=== PATIENT | female | born 1925 | race Caucasian/White ===

== ENCOUNTER 2016-08-14 23:17 | Inpatient (IN) ==
--- NOTE | 2016-08-15 00:18 | Emergency Department Note ---
Zafar Roberts Manpreet, am scribing for, and in the presence of, Alex Robert MD 00:03. Jakob Roberts Charles R, MD, personally performed the services described in this documentation, ascribed by Naseem Stephen in my presence, and it is both accurate and complete . Arrival - Arrival Chief Complaint: Syncope Stated Complaint: trying to pass out flushing feeling ED Nursing Triage Note: C/O Near syncopal episodes and flushing. Onset on and off since lastnight. Pt reports that she has a warm feeling that starts in her abd and goes all the way up to her head- then she feels like she is going to pass out. Pt reports that the feeling passes then she has another episode. EKG obtained in triage. Mode of Arrival: Wheelchair Limitations: No Limitations Source: Patient, Family - History of Present Illness HPI Narrative: Pt is a 89 y/o female with PMHx of HTN, who presents to the ED with a CC of syncope episodes earlier tonight and that have been reoccurring since July. Pt states the episodes begin with a sensation starting from her Abd and radiate up to her head and feels like she is going to . Pt denies CP, dysuria , ALVAREZ, and fever. Pt is accompanied by her family member who states the Pt had a GI bleed November 26, 2015. No other pains/complaints reported to ED. Onset (ago): week(s) Consistency: intermittent Severity: moderate Severity scale (1-10): 4 Allergies/Adverse Reactions: Allergies Allergy/AdvReac Type Severity Reaction Status Date / Time ciprofloxacin AdvReac Intermediate Diarrhea Verified 08/14/16 23:21 Home Medications: Home Medications Medication Instructions Recorded Confirmed Type Atenolol 12.5 mg PO DAILY 08/14/16 08/14/16 History Calcium Carbonate/Vitamin D3 1 each PO DAILY 08/14/16 08/14/16 History [Calcium 600 + Vit D Tablet] Cyanocobalamin Inj [Vitamin B12 1,000 mcg IM Q30D 08/14/16 08/14/16 History Inj] Ferrous Sulfate 325 mg PO BID 08/14/16 08/14/16 History Folic Acid Tab 4 mg PO DAILY 08/14/16 08/14/16 History Levothyroxine Tab [Synthroid Tab] 75 mcg PO DAILY@0700 08/14/16 08/14/16 History Losartan [Cozaar] 50 mg PO DAILY 08/14/16 08/14/16 History Mirtazapine [Remeron] 15 mg PO BEDTIME 08/14/16 08/14/16 History Vitamin B Complex 1 each PO DAILY 08/14/16 08/14/16 History Warfarin [Coumadin] 2 mg PO DIRECTED 08/14/16 08/14/16 History Warfarin [Coumadin] 4 mg PO DIRECTED 08/14/16 08/14/16 History Review of System - Review of System 12 point system: reviewed and no additional remarkable complaints except as stated - Review of System Constitutional: Absent: chills, diaphoresis, fever Respiratory: Absent: cough, respiratory distress Cardiovascular: Present: syncope. Absent: chest pain Gastrointestinal: Present: abdominal pain. Absent: nausea Musculoskeletal: Absent: arm pain, back pain, lower back pain, neck pain Neurological: Present: other (Synope episodes). Absent: headache, weakness Medical,Surgical,& Family Hx - Medical History Cardio: History of: Hypertension - Social History Smoking Status: Never smoker Frequency of Alcohol Use: None Type of Drug Use: None Exam Vital Signs: Vital Signs Temperature 98.3 F 08/14/16 23:20 Pulse Rate 71 08/15/16 02:15 Respiratory Rate 24 08/15/16 02:15 Blood Pressure 150/61 08/15/16 02:15 O2 Sat by Pulse Oximetry 93 L 08/15/16 02:15 - General General appearance: alert, in no apparent distress - Head Head exam: Present: atraumatic, normocephalic, normal inspection - Eye Eye exam: Present: normal appearance, PERRL, EOMI - ENT ENT exam: Present: normal exam, normal oropharynx, mucous membranes moist, TM's normal bilaterally - Neck Neck exam: Present: normal inspection, full ROM, trachea midline. Absent: tenderness - Chest Chest inspection: Present: normal inspection, symmetric chest wall rise. Absent : tenderness - Respiratory Respiratory exam: Present: normal lung sounds bilaterally. Absent: respiratory distress - Cardiovascular Cardiovascular exam: Present: normal rhythm, bradycardia, murmur (2/6 Murmur). Absent: normal heart sounds - Abdominal Exam Abdominal exam: Present: soft - Extremities Exam Extremities exam: Present: other (+1 Bilateral LE Edema). Absent: normal inspection, full ROM - Neurological Exam Neurological exam: Present: alert, oriented X3, CN II-XII intact - Psychiatric Psychiatric exam: Present: normal affect, normal mood - Skin Skin exam: Present: warm, dry, intact, normal color. Absent: pallor Course - Consultations Consultation #1: Dr. Ren will admit patient for Dr. Dr. Marcano Time: 02:03 Results - Labs CBC & BMP: 08/15/16 00:25 08/15/16 00:25 Lab Results: I have reviewed the patients labs Labs: Laboratory Tests 08/15/16 08/15/16 08/15/16 00:25 00:25 00:25 WBC 7.4 RBC 4.26 Hgb 13.2 Hct 39.9 MCV 93.7 Plt Count 224 Neut % (Auto) 49.7 Lymph % (Auto) 35.5 [place] % (Auto) 10.1 INR 1.8 PT Patient/Control Mix 19.4 Sodium 142 Potassium 4.1 Chloride 107 Carbon Dioxide 28 BUN 21 H BUN/Creatinine Ratio 21.00 H Albumin/Globulin Ratio 1.0 L Disposition Clinical Impression: Vasovagal syncope, History of pulmonary embolus (PE), History of dermatomyositis Case discussed with: patient, patient's family Disposition: Still a Patient Condition: Stable Time of Disposition: 02:18
[2016-08-15 01:03] LABS: INR 1.8; PT Patient Result 19.4 SECS
[2016-08-15 01:13] LABS: Alanine Aminotransferase 30 U/L (13-56); Albumin 3.4 G/DL (3.4-5.0); Alkaline Phosphatase 101 U/L (45-117); Aspartate Amino Transferase 21 U/L (0-37); Bilirubin,Total < 0.39 MG/DL (0.2-1.0); Blood Urea Nitrogen 21 MG/DL (7-18); Calcium 9.2 MG/DL (8.5-10.1); Glucose 97 MG/DL (74-106); Magnesium 2.1 MG/DL (1.8-2.4); Osmolality,Calculated 285.1 MOS/KG (273-304); Potassium 4.1 MMOL/L (3.5-5.1); Sodium 142 MMOL/L (136-145); Total Protein 6.8 G/DL (6.4-8.3); Troponin I Only < 0.015 NG/ML (0.00-0.045)
[2016-08-15] MEDS ORDERED: ENOXAPARIN 80 MG/0.8 ML SYRINGE SUBCUT STA (01:19)
[2016-08-15] MEDS ORDERED: ENOXAPARIN 80 MG/0.8 ML SYRINGE SUBCUT ONE (01:20)
[2016-08-15 01:23] LABS: Basophils % 0.5 % (0.0-0.8); Eosinophils # 0.3 10*3/uL (0.0-0.87); Eosinophils % 3.7 % (0.00-10.9); Hematocrit 39.9 VOL% (35.7-47.0); Hemoglobin 13.2 GM/DL (12.0-16.0); Immature Granulocytes % 0.5 %; Immature Granulocytes Absolute 0.04 #; Lymphocytes # 2.6 10*3/uL (1.4-4.0); Lymphocytes % 35.5 % (21.3-54.2); Mean Corpuscular HGB Conc 33.1 GM/DL (32-36); Mean Corpuscular Hemoglobin 31 PG (27-34); Mean Corpuscular Volume 93.7 FL (87-102); Monocytes # 0.7 10*3/uL (0.11-0.8); Monocytes % 10.1 % (1.7-12.7); Neutrophils # 3.7 10*3/uL (1.4-7.4); Neutrophils % 49.7 % (38.7-73.9); Platelet Count 224 T/CUMM (130-400); Red Blood Count 4.26 MC/CUMM (3.8-5.5); White Blood Count 7.4 T/CUMM (4-12)
[2016-08-15 01:35] LABS: Apearance,Urine Slightly Hazy (Clear); Bilirubin,Urine Negative (Negative); Blood, Urine Negative (Negative); Glucose,Urine (UA) Negative (Negative); Hyaline Casts,Urine 1 /LPF (0-3); Ketones,Urine Negative (Negative); Mucus,Urine Occasional /LPF (Occasional); Nitrite,Urine Negative (Negative); Protein,Urine Negative; RBC,Urine 18 /HPF (0-4); Urine Specific Gravity 1.014 (1.001-1.035); Urine Urobilinogen < 2.0 EU/DL (0.2-1.0); WBC,Urine 1 /HPF (0-6)
[2016-08-15 01:37] LABS: Urine Color Yellow (Yellow)
[2016-08-15] MEDS ORDERED: MORPHINE 2 MG/1 ML SYRINGE IV PRN (03:24)
[2016-08-15] MEDS ORDERED: CYANOCOBALAMIN 1000 MCG/1 ML VIAL IM SCH (03:24)
[2016-08-15] MEDS ORDERED: ONDANSETRON 4 MG/2 ML VIAL IV PRN (03:24)
[2016-08-15] MEDS ORDERED: ACETAMINOPHEN 325 MG TABLET PO PRN (03:24)
[2016-08-15 05:21] LABS: Basophils % 0.4 % (0.0-0.8); Eosinophils # 0.3 10*3/uL (0.0-0.87); Eosinophils % 4.5 % (0.00-10.9); Hemoglobin 12.1 GM/DL (12.0-16.0); Immature Granulocytes % 0.1 %; Immature Granulocytes Absolute 0.01 #; Mean Corpuscular HGB Conc 33.6 GM/DL (32-36); Mean Corpuscular Hemoglobin 31 PG (27-34); Mean Corpuscular Volume 93.3 FL (87-102); Monocytes # 0.7 10*3/uL (0.11-0.8); Monocytes % 9.6 % (1.7-12.7); Neutrophils # 3.5 10*3/uL (1.4-7.4); Neutrophils % 46.4 % (38.7-73.9); Platelet Count 220 T/CUMM (130-400); Red Blood Count 3.86 MC/CUMM (3.8-5.5); Red Cell Distribution Width 12.8 % (9.3-17.3); White Blood Count 7.6 T/CUMM (4-12)
[2016-08-15 05:36] LABS: INR 1.8
[2016-08-15 05:38] LABS: PT Patient Result 20.2 SECS
[2016-08-15 05:59] LABS: Bilirubin,Total 0.5 MG/DL (0.2-1.0); Calcium 8.5 MG/DL (8.5-10.1); Magnesium 1.9 MG/DL (1.8-2.4); Potassium 4.2 MMOL/L (3.5-5.1)
[2016-08-15 06:06] LABS: Troponin I Only < 0.015 NG/ML (0.00-0.045)
[2016-08-15] MEDS: SODIUM CHLORIDE 0.9% 1,000 ML IV SCH ×3 (06:43→23:50)
[2016-08-15] MEDS: LEVOTHYROXINE 75 MCG TABLET PO SCH (06:43)
--- NOTE | 2016-08-15 07:43 | EKG Report ---
Stationary ECG Study [facility] Test Date: 08/15/2016 7:19:55 AM Pat Name: JACKY EDWARD Department: Room: 273 Gender: F Section Gang: Richard : 1925 Requested by: Alex Toribio Order Number: [id number] Reading MD: KATHLEEN GUADARRAMA Intervals [place] Rate: 65 P: 22 NM: 207 QRS: -15 QRSD: 85 T: -4 QT: 398 QTc: 409 Interpretive Statements SINUS RHYTHM WITH BORDERLINE 1ST DEGREE AV BLOCK LOW QRS VOLTAGE IN CHEST LEADS Electronically Signed On 08-15-16 19:44:56 CDT by KATHLEEN GUADARRAMA [email or web address]
--- NOTE | 2016-08-15 07:43 | EKG Report ---
Stationary ECG Study [facility] ER Test Date: 08/14/2016 11:26:44 PM Pat Name: JACKY EDWARD Department: Room: 273 Gender: F Dog Trainer: Cindy : 1925 Requested by: Alex Toribio Order Number: [id number] Reading MD: KATHLEEN GUADARRAMA Intervals [place] Rate: 69 P: 61 KS: 218 QRS: -47 QRSD: 108 T: 57 QT: 387 QTc: 405 Interpretive Statements SINUS RHYTHM WITH FIRST DEGREE AV BLOCK LEAD V1 AND V2 ARE PROBABLY REVERSED LEFT ANTERIOR FASCICULAR BLOCK Electronically Signed On 08-15-16 19:34:28 CDT by KATHLEEN GUADARRAMA [email or web address]
--- NOTE | 2016-08-15 08:23 | CT Report ---
CT head/brain wo con INDICATION: Syncope The total DLP is 1073 mGy*cm. COMPARISON: Noncontrast CT head dated 01/08/2015 Technique: Serial axial tomographic images of the brain were obtained without the use of intravenous contrast. Dose reduction: This CT exam was performed using one or more of the following dose reduction techniques: Automated exposure control, automated adjustment of the mA and/or KV according to patient size, or use of iterative reconstruction technique. Findings: Moderate generalized atrophy is noted with mild prominence of the sulci and cortical volume loss. Periventricular white matter hypodensity changes are noted bilaterally which do not demonstrate mass effect and are nonspecific but favored to represent sequela of chronic microvascular ischemia. There is no evidence of vascular territory infarct or acute intracranial hemorrhage. The patel-white matter differentiation is generally maintained. There is no hydrocephalus. The basilar cisterns are patent. The visualized paranasal sinuses, mastoid air cells and middle ear cavities are predominantly clear. The included orbits and their contents appear within normal limits. The visualized osseous structures and overlying soft tissues of the skull and face demonstrate no acute abnormality. IMPRESSION: No acute intracranial abnormality. Prominent periventricular white matter hypodensity changes, compatible with sequela of chronic microvascular ischemia. No change from preliminary [facility] report. PROCEDURE INTERPRETED AT [facility] DEPARTMENT OF RADIOLOGY Final Report Signed by: Gorge Verma
--- NOTE | 2016-08-15 08:46 | XRay Report ---
History: Abdominal fullness Date: 08/15/2016 Study: Flat and erect abdomen Comparison exam: No previous similar study for comparison There is no evidence of pneumoperitoneum. The bowel gas pattern is nonobstructive without gross mass lesion. Some scattered stool and air are noted in the normal caliber colon. Surgical clips overlie the right upper abdomen. Phleboliths overlie the pelvis. There is mild tortuosity of the moderately calcified abdominal aorta without gross aneurysm. Phleboliths overlie the pelvis. There is remote fracture deformity of the left pubic bone. There is some levoscoliosis of the lumbar spine. There is osteopenia. There is mild platelike atelectasis in the lung bases. Impression: No definite acute abdominal process PROCEDURE INTERPRETED AT [facility] DEPARTMENT OF RADIOLOGY Final Report Signed by: Dr. Margarita Mcdaniel
--- NOTE | 2016-08-15 08:49 | XRay Report ---
History: Shortness of breath Date: 08/15/2016 Study: Chest x-ray AP portable Comparison exam: Chest x-ray June 23, 2012 The cardiac silhouette is not enlarged. There is no mediastinal mass. There is moderate aortic arch calcification. The pulmonary vasculature is not engorged. There is parenchymal and pleural scarring right lung apex. There is some increased platelike scarring in the right lung base compared to the previous study. There is stable scarring in the left base. Scattered emphysematous changes are noted. There is no definite acute infiltrate to suggest pneumonia. There is moderate thoracic spondylosis. Impression: No definite acute process compared to the previous study. Increased parenchymal scarring in the right lung base compared to the prior exam. Chronic lung changes to include emphysematous change PROCEDURE INTERPRETED AT [facility] DEPARTMENT OF RADIOLOGY Final Report Signed by: Dr. Margarita Mcdaniel
[2016-08-15] MEDS ORDERED: ATENOLOL 25 MG TABLET PO SCH (09:00)
[2016-08-15] MEDS ORDERED: LOSARTAN 50 MG TABLET PO SCH (09:00)
[2016-08-15] MEDS: MULTIVITAMIN (BEROCCA) TABLET PO SCH (10:29)
[2016-08-15] MEDS: CALCIUM (CARBONATE)/VITAMIN D 600 MG-400 UNIT TABLET PO SCH (10:29)
[2016-08-15] MEDS: FOLIC ACID 1 MG TABLET PO SCH (10:29)
[2016-08-15] MEDS: FERROUS SULFATE 325 MG TABLET PO SCH ×2 (10:30→22:12)
[2016-08-15] MEDS: PANTOPRAZOLE 40 MG VIAL IV SCH (10:30)
[2016-08-15] MEDS: DOCUSATE SODIUM 100 MG CAPSULE PO SCH ×2 (10:34→22:13)
--- NOTE | 2016-08-15 11:03 | Cardiology Consult Note ---
Assessment and Plan - Time spent with patient Time spent with patient: Greater than 30 minutes (1) Near syncope Status: Acute Assessment and plan: Etiology of this is unclear. Since being admitted to [facility] patient has had no episodes of hypotension, bradycardia or tachyarrhythmias. She denies heart racing and heart palpitations. Urinalysis is unremarkable. Blood sugar has also been stable. Upon arrival to the ER, her EKG revealed first-degree AV block with left anterior fascicular block. However, she has not had any bradycardia with this. It is possible that this could have been caused from hypoglycemia as patient reports that it did respond well to sugar. I have added hemoglobin A1c to patient's lab draw. Monitor patient closely on the channeler insole and observe for arrhythmias that could possibly be contributing to her symptoms. Will consider Holter monitor at discharge. Further plan and addendum to follow per Dr. Beck. Current Visit: Yes (2) Hypertension Status: Chronic Assessment and plan: This is currently stable. Will continue current plan of care. Will adjust medications as needed throughout her hospital stay. Current Visit: Yes (3) Chronic anticoagulation Status: Chronic Assessment and plan: Patient was started on Coumadin after having pulmonary embolism. INR today is stable at 1.8. Will continue to monitor patient's INR daily. Current Visit: Yes (4) Hypothyroid Status: Chronic Assessment and plan: TSH has been added to patient's lab draw. We will continue Synthroid. Current Visit: Yes (5) Obstructive sleep apnea Status: Chronic Assessment and plan: Patient to get her CPAP machine from home. CPAP nightly. Current Visit: Yes (6) Dyspnea on exertion Status: Acute Assessment and plan: Patient does report dyspnea on exertion for the past 1 year. BNP only mildly elevated at 143. Troponin negative 2. I will order an echocardiogram at this time. Current Visit: Yes History of Present Illness - Data of Consult Patient: known to practice within the last 3 years Consult date: 08/15/16 Requesting Physician: Alex Robert Primary care physician: Carlos Marcano - Consult Narrative Reason for consult: Near syncope History of present illness: Steward[employer] Car: Dr. Barrientos PCP: Dr. Carlos Marcano Cardiology consult note: Near syncope Ms. Mehul Lutz is a 89 year old female without known history of coronary artery disease, routinely followed by Dr. Tyler Barrientos. Patient presented to the emergency department after having a near syncopal episode. Patient has cardiac risk factors significant for hypertension, advanced age and sedentary lifestyle. She reports that she is a lifetime non-smoker and has no significant family history of heart disease. Patient has a past medical history of obstructive sleep apnea (compliant with CPAP at home), hypothyroidism , DVT and pulmonary embolism and GERD. Patient reports that she has never undergone heart catheterization. However, she does report that she has had nuclear stress testing approximately 1 year ago. However, I am unable to find any records from this. Patient last saw Dr. Barrientos September 2015. She was without complaints at that time. Patient was in her usual state of health until approximately 2 weeks ago when she began having near-syncopal episodes while at her grandson's birthday alliance party in [place]. She tells me that this is the first time she has ever experienced this. She describes it as a warm flushing feeling that comes over her that is resolved after sitting down. Usually lasting only a couple of minutes. She denies actually "passing out." She reports having about 3-4 spells that day. Denies chest pain, heaviness and tightness. Also denies having heart racing/heart palpitations and shortness of breath with this. After returning home from [place], she has had no further episodes until yesterday morning. She reports that while lying in bed she experienced the same warm flushing feeling and she felt as if she was going to pass out. She tells me that she actually thought that she was dying. Again, this quickly resolved on its on after a couple of minutes. She had approximately 4-5 of these episodes. She was suspicious that this could be related to hypoglycemia so she ate a piece of candy. This relieved her symptoms for several hours until later, that afternoon, she experienced 2-3 more of these episodes. This was frightening to her so she contacted her daughter to transport her to the ER for further evaluation. Patient has been admitted under Dr. Carlos De Oliveira's service and housed on the telemetry unit. Cardiology has been consulted for further evaluation of patient's near syncope. Of note, patient does admit to dyspnea on exertion. She reports that over the past year she has noticed that she gets more short of breath with activity and has to take multiple rest breaks. She denies ever having any chest pain, heaviness or shortness with exertion. Patient was seen and examined on the telemetry unit. She is sitting up in bed in no acute distress. She reports that she has had no further near-syncopal episodes since being admitted to the hospital yesterday. She denies chest pain , heaviness and tightness. Also denies heart fluttering and heart racing. Blood pressure has been under well control. No sal[place] or tachy arrhythmias has been noted per channeler insole. Urinalysis does not reveal UTI. Head CT did not reveal any acute intracranial abnormality. Troponin has been negative 2. Upon arrival to the emergency department patient's EKG revealed first-degree AV block with left anterior fascicular block. Will discuss with Dr. Beck. Further plan and addendum to follow. CC: Carlos Marcano MD - Home Medications and Allergies Home Medications: Home Medications Medication Instructions Recorded Confirmed Type Atenolol 12.5 mg PO DAILY 08/14/16 08/14/16 History Calcium Carbonate/Vitamin D3 1 each PO DAILY 08/14/16 08/14/16 History [Calcium 600 + Vit D Tablet] Cyanocobalamin Inj [Vitamin B12 1,000 mcg IM Q30D 08/14/16 08/14/16 History Inj] Ferrous Sulfate 325 mg PO BID 08/14/16 08/14/16 History Folic Acid Tab 4 mg PO DAILY 08/14/16 08/14/16 History Levothyroxine Tab [Synthroid Tab] 75 mcg PO DAILY@0700 08/14/16 08/14/16 History Losartan [Cozaar] 50 mg PO DAILY 08/14/16 08/14/16 History Mirtazapine [Remeron] 15 mg PO BEDTIME 08/14/16 08/14/16 History Vitamin B Complex 1 each PO DAILY 08/14/16 08/14/16 History Warfarin [Coumadin] 2 mg PO DIRECTED 08/14/16 08/14/16 History Warfarin [Coumadin] 4 mg PO DIRECTED 08/14/16 08/14/16 History Allergies/Adverse Reactions: Allergies Allergy/AdvReac Type Severity Reaction Status Date / Time ciprofloxacin AdvReac Intermediate Diarrhea Verified 08/14/16 23:21 - Constitutional Constitutional: Absent: chills, fatigue, fever(s), frequent falls, lethargy, malaise, weight gain, weight loss - Cardiovascular Cardiovascular: Present: diaphoresis, dyspnea on exertion, lightheadedness. Absent: chest pain at rest, chest pain with activity, claudication, radiating jaw, neck or arm pain, orthopnea, palpitations, PND - Respiratory Respiratory: Present: dyspnea on exertion. Absent: cough, hemoptysis, wheezing , snoring, pain on inspiration, change in phlegm color - Gastrointestinal Gastrointestinal: Absent: abdominal pain, change in bowel habits, coffee ground emesis, diarrhea, heartburn, hematemesis, hematochezia, melena, nausea, vomiting - Genitourinary Genitourinary: Absent: dysuria - Neurological Neurological: Present: dizziness, other (Near syncope). Absent: abnormal gait, abnormal speech, behavioral changes, frequent falls - Hematologic/Lymphatic Hematologic/Lymphatic: Absent: easy bleeding, easy bruising, lymphadenopathy Medical,Surgical,& Family Hx - Medical History Cardio: History of: Hypertension Endocrine: History of: Thyroid Disorder No history of: Diabetes Mellitus (NIDDM), Dyslipidemia Gastrointestinal: History of: GERD - Surgical History Cardiac Surgeries: Patient Denies: Cardiac Catheterization Thoracic Surgeries: Patient denies;: Organ Transplant, Lobectomy Reproductive Surgeries: Patient denies;: Gynecologic Surgery - Family History Family History: Denies;: Family Heart Disease - Social History Smoking Status: Never smoker Frequency of Alcohol Use: None Type of Drug Use: None Physical Examination Vital Signs Temp Pulse Resp BP Pulse Ox 98.3 F 65 18 170/76 93 L 08/14/16 23:20 08/14/16 23:20 08/14/16 23:20 08/14/16 23:20 08/14/16 23:20 General: Present: Appears Well, No Apparent Distress Neck: Present: Supple Neck, Midline Trachea, No Masses, No Bruit, No Lymphadenopathy, No Thyromegaly Cardiac: Present: Reg Rate and Rhythm, Regular Rate, Regular Rhythm, S1/S2, No Murmur Lungs: Present: Normal Exam, Clear Ascult./Percussion, Normal Breath Sounds, No Wheeze, Rales, Rhonchi. Absent: Oxygen Neuro: Present: Cranial Nerve 2-12 Intact, Grossly Intact Abdomen: Present: Soft, Active Bowel Sounds, No Masses, Non-Tender. Absent: Firm, Distended Skin: Present: Clear. Absent: Rash, Suspicious Lesions, Ulceration Gait: Present: Normal Gait Extremities: Present: Normal Gait, No Clubbing, No Cyanosis, Normal Upper Extr. Pulses, Normal Lower Extr. Pulses, Edema (Trace edema to bilateral lower extremities) Result/EKG - Labs CBC & BMP: 08/15/16 04:38 08/15/16 04:38 Lab Results: I have reviewed the past 24 hour labs Labs: Laboratory Results - last 24 hr 08/15/16 08/15/16 08/15/16 04:38 04:38 04:38 WBC 7.6 RBC 3.86 Hgb 12.1 Hct 36.0 MCV 93.3 MCH 31 MCHC 33.6 RDW 12.8 Plt Count 220 MPV 10.0 Neut % (Auto) 46.4 Lymph % (Auto) 39.0 [place] % (Auto) 9.6 Eos % (Auto) 4.5 Baso % (Auto) 0.4 Neut # (Auto) 3.5 Lymph # (Auto) 3.0 [place] # (Auto) 0.7 Eos # (Auto) 0.3 Baso # (Auto) 0.0 Immature Gran % 0.1 Nucleated RBC % 0.0 Immature Gran # 0.01 Nucleated RBCs # 0.00 INR PT Patient/Control Mix Sodium Potassium Chloride Carbon Dioxide Anion Gap BUN Creatinine GFR Calculation BUN/Creatinine Ratio Glucose Calculated Osmolality Calcium Magnesium Total Bilirubin AST ALT Alkaline Phosphatase Total Creatine Kinase 59 CK-MB (CK-2) < 1.0 Troponin I < 0.015 B-Natriuretic Peptide Total Protein Albumin Globulin Albumin/Globulin Ratio Free T4 TSH 3rd Generation 2.310 08/15/16 08/15/16 08/15/16 04:38 04:38 04:38 WBC RBC Hgb Hct MCV MCH MCHC RDW Plt Count MPV Neut % (Auto) Lymph % (Auto) [place] % (Auto) Eos % (Auto) Baso % (Auto) Neut # (Auto) Lymph # (Auto) [place] # (Auto) Eos # (Auto) Baso # (Auto) Immature Gran % Nucleated RBC % Immature Gran # Nucleated RBCs # INR 1.8 PT Patient/Control Mix 20.2 Sodium 143 Potassium 4.2 Chloride 107 Carbon Dioxide 29 Anion Gap 11.2 BUN 18 Creatinine 0.90 GFR Calculation 64 BUN/Creatinine Ratio 20.00 Glucose 98 Calculated Osmolality 286.0 Calcium 8.5 Magnesium 1.9 Total Bilirubin 0.50 AST 20 ALT 24 Alkaline Phosphatase 91 Total Creatine Kinase CK-MB (CK-2) Troponin I B-Natriuretic Peptide 143 H Total Protein 6.0 L Albumin 3.0 L Globulin 3.0 Albumin/Globulin Ratio 1.0 L Free T4 TSH 3rd Generation 08/15/16 04:38 WBC RBC Hgb Hct MCV MCH MCHC RDW Plt Count MPV Neut % (Auto) Lymph % (Auto) [place] % (Auto) Eos % (Auto) Baso % (Auto) Neut # (Auto) Lymph # (Auto) [place] # (Auto) Eos # (Auto) Baso # (Auto) Immature Gran % Nucleated RBC % Immature Gran # Nucleated RBCs # INR PT Patient/Control Mix Sodium Potassium Chloride Carbon Dioxide Anion Gap BUN Creatinine GFR Calculation BUN/Creatinine Ratio Glucose Calculated Osmolality Calcium Magnesium Total Bilirubin AST ALT Alkaline Phosphatase Total Creatine Kinase CK-MB (CK-2) Troponin I B-Natriuretic Peptide Total Protein Albumin Globulin Albumin/Globulin Ratio Free T4 1.39 TSH 3rd Generation Quality Measures - VTE Contraindication to Pharmacological VTE Prophylaxis: Already on Theraputic Agent , No Prophylaxis Needed - Stroke Symptom Onset Unknown: No
--- NOTE | 2016-08-15 12:15 | Family Practice History&Phys ---
Assessment and Plan (1) Near syncope Status: Acute Assessment and plan: We will need to evaluate this in detail. Most likely cause would be cardiac in nature Current Visit: Yes (2) Hypertension Status: Chronic Assessment and plan: Stable on present medications Current Visit: Yes (3) Chronic anticoagulation Status: Chronic Assessment and plan: We will resume medications as indicated Current Visit: Yes (4) Hypothyroid Status: Chronic Assessment and plan: We will resume home medications and monitor Current Visit: Yes (5) Obstructive sleep apnea Status: Chronic Assessment and plan: Stable to present Current Visit: Yes History of Present Illness Chief complaint: Near syncope and weakness History of present illness: Ms. Mehul Lutz is a 89 year old female Patient is an 89-year-old female admitted to the emergency room after she had a near syncopal episode at home. Apparently he has had some similar episodes over the last several weeks. It has progressively gotten worse. Patient states she can feel the episodes began in her upper abdomen and radiated to her head. She then becomes extremely weak with a near syncope. She was seen in emergency room in view of history admitted for evaluation therapy Home Medications Medication Instructions Recorded Confirmed Type Atenolol 12.5 mg PO DAILY 08/14/16 08/14/16 History Calcium Carbonate/Vitamin D3 1 each PO DAILY 08/14/16 08/14/16 History [Calcium 600 + Vit D Tablet] Cyanocobalamin Inj [Vitamin B12 1,000 mcg IM Q30D 08/14/16 08/14/16 History Inj] Ferrous Sulfate 325 mg PO BID 08/14/16 08/14/16 History Folic Acid Tab 4 mg PO DAILY 08/14/16 08/14/16 History Levothyroxine Tab [Synthroid Tab] 75 mcg PO DAILY@0700 08/14/16 08/14/16 History Losartan [Cozaar] 50 mg PO DAILY 08/14/16 08/14/16 History Mirtazapine [Remeron] 15 mg PO BEDTIME 08/14/16 08/14/16 History Vitamin B Complex 1 each PO DAILY 08/14/16 08/14/16 History Warfarin [Coumadin] 2 mg PO DIRECTED 08/14/16 08/14/16 History Warfarin [Coumadin] 4 mg PO DIRECTED 08/14/16 08/14/16 History Allergies Allergy/AdvReac Type Severity Reaction Status Date / Time ciprofloxacin AdvReac Intermediate Diarrhea Verified 08/14/16 23:21 Medical,Surgical,& Family Hx - Medical History Cardio: History of: Hypertension Endocrine: History of: Thyroid Disorder No history of: Diabetes Mellitus (NIDDM), Dyslipidemia Gastrointestinal: History of: GERD Musculoskeletal: No history of: Amputation - Surgical History Cardiac Surgeries: Patient Denies: Cardiac Catheterization Thoracic Surgeries: Patient denies;: Organ Transplant, Lobectomy Reproductive Surgeries: Patient denies;: Gynecologic Surgery - Family History Family History: Denies;: Family Heart Disease - Social History Smoking Status: Never smoker Frequency of Alcohol Use: None Type of Drug Use: None Lives With:: Alone Exam - Constitutional Vitals: Period Temp Pulse Resp BP Sys/Moreira Pulse Ox Last 24 Hr 97.9 F-98.4 F 61-78 18-22 132-162/53-83 93-96 General appearance: no acute distress - Head Head exam: Present: normal inspection - Eye Pupils: Present: FABIO - Neck Neck exam: Present: normal inspection - Respiratory Respiratory exam: Present: clear to auscultation bilaterally - Cardiovascular Cardiovascular exam: Present: irregular rhythm - GI/Abdominal GI/Abdominal exam: Present: normal bowel sounds, soft - Extremities Exam Extremities exam: Present: normal inspection - Back Exam Back exam: Present: normal inspection - Neurological Exam Neurological exam: Present: alert - Psychiatric Psychiatric exam: Present: normal affect - Skin Skin exam: Present: normal color Results - Labs CBC & BMP: 08/15/16 04:38 08/15/16 04:38 Quality Measures - VTE Contraindication to Pharmacological VTE Prophylaxis: Already on Theraputic Agent , No Prophylaxis Needed - Stroke Symptom Onset Unknown: No
--- NOTE | 2016-08-15 13:51 | XRay Report ---
XR chest 2V Indication: Shortness of breath Comparison: 15 Aug 2016 Findings: The heart and mediastinum are normal in size and configuration. The pulmonary vascularity is normal in caliber. Lung volumes are increased with prominent bronchial markings. Linear scarring is present in both lung bases. No lung infiltrates, effusions, pneumothorax or other abnormality is demonstrated. Impression: Chronic lung changes. No acute process or significant change. PROCEDURE INTERPRETED AT [facility] DEPARTMENT OF RADIOLOGY Final Report Signed by: Dr. Jethro Frey
--- NOTE | 2016-08-15 13:53 | Ultrasound Report ---
History: Altered gait Date: 08/15/2016 Study: Carotid duplex ultrasound Comparison exam: No previous similar exam for comparison Color Doppler, wave form analysis, and grayscale analysis of the cervical carotid arteries was performed. There is mild partially calcified plaque in either carotid bulb, more on the right. Waveform analysis shows proper directional flow of the cervical carotid arteries. There is antegrade flow in either vertebral artery. The distal right ICA measures 4.7 mm diameter; the left measures 4.3 mm diameter. Peak systolic velocities are as follows: Right CCA 49 cm/s Right ICA 72 cm/s Right ECA 68 cm/s Right vertebral 48 cm/s Right IC/CC ratio 1.5 Left CCA 76 cm/s Left ICA 61 cm/s Left ECA 35 cm/s Left vertebral 57 cm/s Left IC/CC ratio 0.8 There is 0-15% diameter reduction narrowing of either internal carotid artery using indirect NASCET criteria. Ultrasound images were captured and archived. Impression: No hemodynamically significant internal carotid artery stenosis PROCEDURE INTERPRETED AT [facility] DEPARTMENT OF RADIOLOGY Final Report Signed by: Dr. Margarita Mcdaniel
--- NOTE | 2016-08-15 15:56 | ECHO Report ---
Justine Jordan Exam Date: 08/15/2016 14:47 Referring Physician: Technologist: Elda Lopez RDCS Age: 89 Ht (in): 67 Wt (lb): 186 Gender: F Exam Location: [facility] Echo Indications: Near syncope, Essential (primary) hypertension, Chronic anticoagulation, Hypothyroid, OLGA, Dyspnea, unspecified, Dizziness and giddiness BP: 136 / 71 HR: 59 Rhythm: Sinus Technical Quality: IMPRESSIONS Left ventricular ejection fraction is estimated at 60-65 %. Mild concentric left ventricular hypertrophy with mild diastolic dysfunction. Mild bilateral atrial enlargement.Mildly thickened mitral valve with mild mitral regurgitation. Mild aortic valve sclerosis without stenosis. Mild aortic valve regurgitation. Mild tricuspid valve regurgitation. MEASUREMENTS (Male / Female) Normal Values 2D ECHO LV Diastolic Diameter PLAX 3.4 cm 4.2 - 5.9 / 3.9 - 5.3 cm LV Systolic Diameter PLAX 2.1 cm LV Fractional Shortening PLAX 39.5 % IVS Diastolic Thickness 1.4 cm 0.6 - 1.0 / 0.6 - 0.9 cm LVPW Diastolic Thickness 1.3 cm 0.6 - 1.0 / 0.6 - 0.9 cm RV Internal Dim ED PLAX 3.3 cm Aortic Root Diameter 3.5 cm LA Systolic Diameter LX 4.3 cm 3.0 - 4.0 / 2.7 - 3.8 cm DOPPLER TR Peak Velocity 290.0 cm/s TR Peak Gradient 33.6 mmHg FINDINGS Left Ventricle Normal left ventricular cavity size. Mild concentric left ventricular hypertrophy with mild diastolic dysfunction. Left ventricular ejection fraction is estimated at 60-65 %. Right Ventricle The right ventricle is normal in size and function. Right Atrium The right atrium is mildly enlarged. Left Atrium The left atrium is mildly enlarged. Mitral Valve Mildly thickened mitral valve with mild mitral regurgitation. Aortic Valve Mild aortic valve sclerosis without stenosis. Mild aortic valve regurgitation. Tricuspid Valve Morphologically normal tricuspid valve. Mild tricuspid valve regurgitation. Tricuspid regurgitation velocities suggest a PAP of 44 mmHg. Pulmonic Valve Morphologically normal pulmonic valve. Trace pulmonary valve regurgitation. Pericardium Normal pericardium without effusion. Aorta Normal ascending aorta dimension. Chris Beck (Electronically Signed) Final Date: 15 Aug 2016 15:55
[2016-08-15] MEDS ORDERED: WARFARIN 2 MG TABLET PO SCH (18:00)
[2016-08-15] MEDS ORDERED: ENOXAPARIN 80 MG/0.8 ML SYRINGE SUBCUT SCH (21:00)
[2016-08-15] MEDS: MIRTAZAPINE 15 MG TABLET PO SCH (22:12)
[2016-08-16 04:24] LABS: Basophils % 0.5 % (0.0-0.8); Eosinophils # 0.3 10*3/uL (0.0-0.87); Immature Granulocytes % 0.2 %; Immature Granulocytes Absolute 0.01 #; Lymphocytes # 2.3 10*3/uL (1.4-4.0); Lymphocytes % 36.2 % (21.3-54.2); Mean Corpuscular HGB Conc 33.3 GM/DL (32-36); Mean Corpuscular Hemoglobin 31 PG (27-34); Mean Corpuscular Volume 93.3 FL (87-102); Mean Platelet Volume 9.6 FL (9.6-12.0); Monocytes # 0.6 10*3/uL (0.11-0.8); Monocytes % 9.5 % (1.7-12.7); Neutrophils # 3.1 10*3/uL (1.4-7.4); Neutrophils % 48.6 % (38.7-73.9); Platelet Count 187 T/CUMM (130-400); Red Blood Count 3.86 MC/CUMM (3.8-5.5); Red Cell Distribution Width 12.8 % (9.3-17.3); White Blood Count 6.4 T/CUMM (4-12)
[2016-08-16 04:35] LABS: PT Patient Result 21.6 SECS
[2016-08-16 04:52] LABS: Calcium 8.3 MG/DL (8.5-10.1); Magnesium 2.1 MG/DL (1.8-2.4); Osmolality,Calculated 286.8 MOS/KG (273-304); Potassium 3.9 MMOL/L (3.5-5.1)
[2016-08-16 04:59] LABS: Ferritin 128.4 ng/ml (8-252); Free T4 (Free Thyroxine) 1.33 NG/DL (0.76-1.46)
[2016-08-16] MEDS: LEVOTHYROXINE 75 MCG TABLET PO SCH (06:34)
[2016-08-16] MEDS: SODIUM CHLORIDE 0.9% 1,000 ML IV SCH (09:17)
[2016-08-16] MEDS: DOCUSATE SODIUM 100 MG CAPSULE PO SCH ×2 (09:18→21:24)
[2016-08-16] MEDS: PANTOPRAZOLE 40 MG VIAL IV SCH (09:19)
[2016-08-16] MEDS: FOLIC ACID 1 MG TABLET PO SCH (09:19)
[2016-08-16] MEDS: CALCIUM (CARBONATE)/VITAMIN D 600 MG-400 UNIT TABLET PO SCH (09:19)
[2016-08-16] MEDS: FERROUS SULFATE 325 MG TABLET PO SCH ×2 (09:19→21:24)
[2016-08-16] MEDS: MULTIVITAMIN (BEROCCA) TABLET PO SCH (09:23)
[2016-08-16] MEDS ORDERED: LOPERAMIDE 2 MG CAPSULE PO PRN ×2 (10:51→12:57)
--- NOTE | 2016-08-16 11:25 | Cardiology Progress Note ---
Assessment and Plan (1) Near syncope Status: Acute Assessment and plan: I really think this was related to her medications, atenolol and losartan. I have held these medications and her blood pressure remained stable. She has had no further symptoms. From my standpoint I think it is okay for her to be discharged home. I would like for her to have a 30 day event recorder, as I am suspicious she may be having significant bradycardia or pauses contributing to her near syncopal spells. Hopefully, stopping his medications will eliminate these spells. If her blood pressure goes up she may need another medication which is less likely to cause bradycardia or sudden blood pressure drops. I would like for her to follow-up with her regular auger operator Dr. Barrientos in 2-4 weeks. Current Visit: Yes (2) Dyspnea on exertion Status: Acute Current Visit: Yes (3) First degree AV block Status: Acute Current Visit: Yes (4) History of pulmonary embolus (PE) Status: Acute Current Visit: Yes (5) Chronic anticoagulation Status: Chronic Current Visit: Yes (6) Hypertension Status: Chronic Current Visit: Yes (7) Hypothyroid Status: Chronic Current Visit: Yes (8) Obstructive sleep apnea Status: Chronic Current Visit: Yes Cardiology - PN: Subj Interval history: The patient has done well overnight. She denies any sort of lightheaded/ syncopal type spells. She feels fatigued and a bit short of breath when she gets up and walks to the bathroom but she thinks this is because she has been lying in the bed overnight. She does not have any anginal symptoms or other concerning symptoms. She feels ready to go home today. I think this is reasonable. I am suspicious that the patient's symptoms are related to her medications and we made some adjustments in this yesterday. I am suspicious that she is having transient pauses/bradycardia related to her atenolol, or it is possible that the atenolol combined with the losartan was causing some transient hypotension. I have stopped these medications for now. Her blood pressure has actually remained well controlled. Current Medications Acetaminophen (Tylenol Tab) 650 mg PO Q6H PRN PRN Reason: Fever > 100.4 or Headache Hydrocodone Bitart/Acetaminophen ([place] 5-325) 1 tablet PO Q4H PRN PRN Reason: Pain Moderate (4-7) Calcium/Vitamin D (Caltrate 600 + D) 1 tablet PO DAILY [facility] Last Admin: 08/16/16 09:19 Dose: 1 tablet Cyanocobalamin (Vitamin B12 Inj) 1,000 mcg IM Q30D [facility] Last Admin: 08/15/16 06:43 Dose: 1,000 mcg Docusate Sodium (Colace Cap) 100 mg PO BID [facility] Last Admin: 08/16/16 09:18 Dose: Not Given Ferrous Sulfate (Feosol Original Tab) 325 mg PO BID [facility] Last Admin: 08/16/16 09:19 Dose: 325 mg Folic Acid () 4 mg PO DAILY [facility] Last Admin: 08/16/16 09:19 Dose: 4 mg Sodium Chloride (Ns) 1,000 mls @ 75 mls/hr IV .[id number] [facility] Last Admin: 08/16/16 09:17 Dose: Not Given Levothyroxine Sodium (Synthroid Tab) 75 mcg PO DAILY@0700 [facility] Last Admin: 08/16/16 06:34 Dose: 75 mcg Loperamide HCl (Imodium Cap) 2 mg PO Q4H PRN PRN Reason: Diarrhea Last Admin: 08/16/16 10:59 Dose: 2 mg Mirtazapine (Remeron) 15 mg PO BEDTIME [facility] Last Admin: 08/15/16 22:12 Dose: 15 mg Morphine Sulfate () 2 mg IV Q4H PRN PRN Reason: Pain Severe (8-10) Ondansetron HCl (Zofran Inj) 4 mg IV Q6H PRN PRN Reason: Nausea/Vomiting Pantoprazole Sodium (Protonix Inj) 40 mg IV DAILY [facility] Last Admin: 08/16/16 09:19 Dose: 40 mg Vitamin B Complex/Vit C/Folic Acid (Ber[place]ca) 1 tablet PO DAILY [facility] Last Admin: 08/16/16 09:23 Dose: 1 tablet Warfarin Sodium (Coumadin) 2 mg PO MoFr@1800 [facility] Last Admin: 08/15/16 18:15 Dose: 2 mg Warfarin Sodium (Coumadin) 4 mg PO SuTuWeThSa@1800 [facility] Exam (Progress Note) - Constitutional Vitals: Period Temp Pulse Resp BP Sys/Moreira Pulse Ox Last 24 Hr 97.9 F-99.3 F 57-70 16-20 119-151/62-72 93-98 Exam: General: Frail, elderly HEENT: Normocephalic, atraumatic Neck: Supple Neck, Midline Trachea Cardiac: Regular rhythm, 2/6 systolic murmur, no gallop, no rub Lungs: Clear to Ascultation, No Wheeze, Rales, Rhonchi Neuro: Cranial Nerve 2-12 Intact, diffuse generalized weakness Abdomen: Soft, Active Bowel Sounds, No Masses, No Pulsations/Bruits Skin: Normal color, no rash Extremities: No Clubbing, No Cyanosis, No Edema, Normal Upper Extr. Pulses Musculoskeletal: No acute abnormality noted Psychiatric: The patient is alert and oriented. The patient has a flat affect but does not appear to be anxious or depressed. Result/EKG - Labs CBC & BMP: 08/16/16 03:35 08/16/16 03:35 Lab Results: I have reviewed the past 24 hour labs Labs: Laboratory Results - last 24 hr 08/15/16 08/15/16 08/16/16 04:34 Unknown 03:35 WBC RBC Hgb Hct MCV MCH MCHC RDW Plt Count MPV Neut % (Auto) Lymph % (Auto) [place] % (Auto) Eos % (Auto) Baso % (Auto) Neut # (Auto) Lymph # (Auto) [place] # (Auto) Eos # (Auto) Baso # (Auto) Immature Gran % Nucleated RBC % Immature Gran # Nucleated RBCs # INR 2.0 PT Patient/Control Mix 21.6 Sodium Potassium Chloride Carbon Dioxide Anion Gap BUN Creatinine GFR Calculation BUN/Creatinine Ratio Glucose Hemoglobin A1c 6.1 Calculated Osmolality Calcium Magnesium Ferritin Free T4 TSH 3rd Generation 2.250 08/16/16 08/16/16 08/16/16 03:35 03:35 03:35 WBC 6.4 RBC 3.86 Hgb 12.0 Hct 36.0 MCV 93.3 MCH 31 MCHC 33.3 RDW 12.8 Plt Count 187 MPV 9.6 Neut % (Auto) 48.6 Lymph % (Auto) 36.2 [place] % (Auto) 9.5 Eos % (Auto) 5.0 Baso % (Auto) 0.5 Neut # (Auto) 3.1 Lymph # (Auto) 2.3 [place] # (Auto) 0.6 Eos # (Auto) 0.3 Baso # (Auto) 0.0 Immature Gran % 0.2 Nucleated RBC % 0.0 Immature Gran # 0.01 Nucleated RBCs # 0.00 INR PT Patient/Control Mix Sodium 144 Potassium 3.9 Chloride 109 H Carbon Dioxide 28 Anion Gap 10.9 BUN 16 Creatinine 0.80 GFR Calculation 74 BUN/Creatinine Ratio 20.00 Glucose 93 Hemoglobin A1c Calculated Osmolality 286.8 Calcium 8.3 L Magnesium 2.1 Ferritin 128.4 Free T4 1.33 TSH 3rd Generation - EKG EKG results: interpreted by me Quality Measures - VTE Contraindication to Pharmacological VTE Prophylaxis: Already on Theraputic Agent , No Prophylaxis Needed - Stroke Symptom Onset Unknown: No
--- NOTE | 2016-08-16 12:01 | Internal Med Progress Note ---
Assessment and Plan (1) Near syncope Status: Acute Assessment and plan: 89-year-old male admitted to acute care * Syncopal episodes. Could be cardiac in nature. She has had pauses along with bradycardia. Her atenolol has been stopped. She could also be orthostatic and her losartan has been stopped. She will need an event monitor * Hypertension. Will watch her blood pressure off the medications. * Depression. Continue current treatment * Hypothyroidism. Patient will continue thyroid replacement Current Visit: Yes (2) History of pulmonary embolus (PE) Status: Acute Current Visit: Yes (3) Hypothyroid Status: Chronic Current Visit: Yes (4) Obstructive sleep apnea Status: Chronic Current Visit: Yes Internal Medicine - PN: Subj Interval history: 89-year-old female admitted with a syncopal episode. Patient has history of hypertension, depression, pulmonary embolism and obstructive sleep apnea. She is feeling better this morning. She has had episodes of spastic colon and requires Imodium off and on. She denies any chest pain or shortness of breath. Exam (Progress Note) - Constitutional Vitals: Period Temp Pulse Resp BP Sys/Moreira Pulse Ox Last 24 Hr 97.9 F-99.3 F 57-70 16-20 119-151/62-72 93-98 Exam: Examination: GENERAL: NAD. HEENT: PERRLA. EOMI. NECK: Neck is supple. CVS: Regular rate and rhythm. S1 and S2 are normal. RESPIRATORY: Lungs are clear. ABDOMEN: Soft and nontender. EXT: No edema. Peripheral pulses are present. MARKET RESEARCH INTERN: Nonfocal SKIN: Warm and dry. MSK: No obvious deformity. Results - Labs CBC & BMP: 08/16/16 03:35 08/16/16 03:35 Quality Measures - VTE Contraindication to Pharmacological VTE Prophylaxis: Already on Theraputic Agent , No Prophylaxis Needed - Stroke Symptom Onset Unknown: No
[2016-08-16] MEDS ORDERED: WARFARIN 4 MG TABLET PO SCH (18:00)
[2016-08-16] MEDS: MIRTAZAPINE 15 MG TABLET PO SCH (21:24)
[2016-08-16] MEDS ORDERED: LOSARTAN 50 MG TABLET PO ONE (23:30)
[2016-08-17 04:40] LABS: PT Patient Result 21.7 SECS
[2016-08-17] MEDS: LEVOTHYROXINE 75 MCG TABLET PO SCH (06:47)
[2016-08-17] MEDS: SODIUM CHLORIDE 0.9% 1,000 ML IV SCH ×2 (08:36→11:38)
[2016-08-17] MEDS: PANTOPRAZOLE 40 MG VIAL IV SCH (08:37)
[2016-08-17] MEDS: MULTIVITAMIN (BEROCCA) TABLET PO SCH (08:38)
[2016-08-17] MEDS: CALCIUM (CARBONATE)/VITAMIN D 600 MG-400 UNIT TABLET PO SCH (08:38)
[2016-08-17] MEDS: FERROUS SULFATE 325 MG TABLET PO SCH (08:38)
[2016-08-17] MEDS: FOLIC ACID 1 MG TABLET PO SCH (08:38)
[2016-08-17] MEDS: DOCUSATE SODIUM 100 MG CAPSULE PO SCH (08:38)
[2016-08-17] MEDS ORDERED: LOSARTAN 50 MG TABLET PO SCH (09:00)
--- NOTE | 2016-08-17 10:39 | Cardiology Progress Note ---
Assessment and Plan (1) Near syncope Status: Acute Assessment and plan: I really think this was related to her medications, atenolol and losartan. Since she had some hypertension I am going to add Norvasc to her medical regimen as I think it is less likely to cause side effects/hypotensive spells. She has had no further symptoms. From my standpoint I think it is okay for her to be discharged home. I would like for her to have a 30 day event recorder, as I am suspicious she may be having significant bradycardia or pauses contributing to her near syncopal spells. Hopefully, stopping his medications will eliminate these spells.I would like for her to follow-up with her regular assistant health educator Dr. Barrientos in 2-4 weeks. Current Visit: Yes (2) Dyspnea on exertion Status: Acute Current Visit: Yes (3) First degree AV block Status: Acute Current Visit: Yes (4) History of pulmonary embolus (PE) Status: Acute Current Visit: Yes (5) Chronic anticoagulation Status: Chronic Current Visit: Yes (6) Hypertension Status: Chronic Current Visit: Yes (7) Hypothyroid Status: Chronic Current Visit: Yes (8) Obstructive sleep apnea Status: Chronic Current Visit: Yes Cardiology - PN: Subj Interval history: The patient is feeling well today. She has no more "spells" of near syncope. Her blood pressure drifted up last night and Dr. Gonsalves resumed her losartan. I discussed this with Dr. Orellana today and we are going to change her to Norvasc because I think it is less likely to cause a rapid drop in blood pressure in elderly patients. From my standpoint she can be discharged home but I would like for her to have a event recorder. She can follow-up with Dr. Barrientos her primary assistant health educator in a few weeks. Current Medications Acetaminophen (Tylenol Tab) 650 mg PO Q6H PRN PRN Reason: Fever > 100.4 or Headache Hydrocodone Bitart/Acetaminophen ([place] 5-325) 1 tablet PO Q4H PRN PRN Reason: Pain Moderate (4-7) Calcium/Vitamin D (Caltrate 600 + D) 1 tablet PO DAILY [facility] Last Admin: 08/17/16 08:38 Dose: 1 tablet Cyanocobalamin (Vitamin B12 Inj) 1,000 mcg IM Q30D [facility] Last Admin: 08/15/16 06:43 Dose: 1,000 mcg Docusate Sodium (Colace Cap) 100 mg PO BID [facility] Last Admin: 08/17/16 08:38 Dose: Not Given Ferrous Sulfate (Feosol Original Tab) 325 mg PO BID [facility] Last Admin: 08/17/16 08:38 Dose: 325 mg Folic Acid () 4 mg PO DAILY [facility] Last Admin: 08/17/16 08:38 Dose: 4 mg Sodium Chloride (Ns) 1,000 mls @ 75 mls/hr IV .[id number] [facility] Last Admin: 08/17/16 08:36 Dose: 75 mls/hr Levothyroxine Sodium (Synthroid Tab) 75 mcg PO DAILY@0700 [facility] Last Admin: 08/17/16 06:47 Dose: 75 mcg Loperamide HCl (Imodium Cap) 4 mg PO Q4H PRN PRN Reason: Diarrhea Last Admin: 08/16/16 13:01 Dose: 2 mg Losartan Potassium (Cozaar) 50 mg PO DAILY [facility] Last Admin: 08/17/16 08:38 Dose: 50 mg Mirtazapine (Remeron) 15 mg PO BEDTIME [facility] Last Admin: 08/16/16 21:24 Dose: 15 mg Morphine Sulfate () 2 mg IV Q4H PRN PRN Reason: Pain Severe (8-10) Ondansetron HCl (Zofran Inj) 4 mg IV Q6H PRN PRN Reason: Nausea/Vomiting Pantoprazole Sodium (Protonix Inj) 40 mg IV DAILY [facility] Last Admin: 08/17/16 08:37 Dose: 40 mg Vitamin B Complex/Vit C/Folic Acid (Berocca) 1 tablet PO DAILY [facility] Last Admin: 08/17/16 08:38 Dose: 1 tablet Warfarin Sodium (Coumadin) 2 mg PO MoFr@1800 [facility] Last Admin: 08/15/16 18:15 Dose: 2 mg Warfarin Sodium (Coumadin) 4 mg PO SuTuWeThSa@1800 [facility] Last Admin: 08/16/16 18:06 Dose: 4 mg Exam (Progress Note) - Constitutional Vitals: Period Temp Pulse Resp BP Sys/Moreira Pulse Ox Last 24 Hr 98.1 F-99.7 F 65-73 18-20 131-191/62-83 91-97 Exam: General: Frail, elderly HEENT: Normocephalic, atraumatic Neck: Supple Neck, Midline Trachea Cardiac: Regular rhythm, 2/6 systolic murmur, no gallop, no rub Lungs: Clear to Ascultation, No Wheeze, Rales, Rhonchi Neuro: Cranial Nerve 2-12 Intact, diffuse generalized weakness Abdomen: Soft, Active Bowel Sounds, No Masses, No Pulsations/Bruits Skin: Normal color, no rash Extremities: No Clubbing, No Cyanosis, No Edema, Normal Upper Extr. Pulses Musculoskeletal: No acute abnormality noted Psychiatric: The patient is alert and oriented. The patient has a flat affect but does not appear to be anxious or depressed. Result/EKG - Labs CBC & BMP: 08/16/16 03:35 08/16/16 03:35 Lab Results: I have reviewed the past 24 hour labs Labs: Laboratory Results - last 24 hr 08/17/16 03:29 INR 2.0 PT Patient/Control Mix 21.7 - EKG EKG results: interpreted by me Quality Measures - VTE Contraindication to Pharmacological VTE Prophylaxis: Already on Theraputic Agent , No Prophylaxis Needed - Stroke Symptom Onset Unknown: No Specialty Discharge - Follow Up or Referrals Follow up with: Tyler Barrientos MD [Physician] - (2-4 weeks)
--- NOTE | 2016-08-17 10:40 | Discharge Summary ---
Hospital Course - Hospital Course Hospital Course: Patient is 89-year-old female who was admitted through emergency room after a near syncopal episode at home. Patient has history of hypertension, hypothyroidism, anemia, depression, chronic anticoagulation for pulmonary embolism. Her losartan and atenolol was stopped during the hospital stay. It was felt that she might be having significant bradycardia. An event monitor will be placed on her tomorrow at cardiology clinic. Her blood pressure was high and she has been started on Norvasc 5 mg daily. She will be discharged home today. She will follow-up with Dr. Marcano in about 2 weeks. Diagnosis - Discharge Diagnosis (1) Near syncope Status: Acute (2) History of pulmonary embolus (PE) Status: Acute (3) Hypothyroid Status: Chronic (4) Obstructive sleep apnea Status: Chronic Specialty Discharge - Follow Up or Referrals Follow up with: Tyler Barrientos MD [Physician] - (2-4 weeks) Discharge Plan - Discharge Data Disposition: Disch To Home/Self Care Condition at Discharge: Stable Discharge Diet: advance to your usual diet - Discharge Medications New amLODIPine [Norvasc] 5 mg PO DAILY #30 tablet Continue Calcium Carbonate/Vitamin D3 [Calcium 600 + Vit D Tablet] 1 each PO DAILY Warfarin [Coumadin] 4 mg PO DIRECTED Warfarin [Coumadin] 2 mg PO DIRECTED Ferrous Sulfate 325 mg PO BID Vitamin B Complex 1 each PO DAILY Levothyroxine Tab [Synthroid Tab] 75 mcg PO DAILY@0700 Cyanocobalamin Inj [Vitamin B12 Inj] 1,000 mcg IM Q30D Mirtazapine [Remeron] 15 mg PO BEDTIME Folic Acid Tab 4 mg PO DAILY Discontinued Losartan [Cozaar] 50 mg PO DAILY Atenolol 12.5 mg PO DAILY - Follow Up or Referral Follow Up: Tyler Barrientos MD [Physician] - (2-4 weeks) - Forms/Instructions Additional Discharge Instructions: Appointment with Dr. Marcano in 2 weeks. Norvasc 5 mg p.o. daily. please call in the prescription Exam - Constitutional Vitals: Period Temp Pulse Resp BP Sys/Moreira Pulse Ox Last 24 Hr 98.1 F-99.7 F 65-73 18-20 131-191/62-83 91-97 Exam: Examination: GENERAL: NAD. NECK: Neck is supple. CVS: Regular rate and rhythm. S1 and S2 are normal. RESPIRATORY: Lungs are clear. ABDOMEN: Soft and nontender. EXT: No edema. Peripheral pulses are present. SNUFF BLENDER: Nonfocal SKIN: Warm and dry. MSK: No obvious deformity. Discharge Results Procedures and tests throughout hospitalization: Pending Orders 08/18/16 04:00 Prothrombin Time INR IN AM 08/19/16 04:00 Prothrombin Time INR IN AM 08/20/16 04:00 Prothrombin Time INR IN AM 08/21/16 04:00 Prothrombin Time INR IN AM Labs on day of discharge: Labs from last 24 hours 08/17/16 03:29 INR 2.0 PT Patient/Control Mix 21.7 DS: Provider Date of admission: 08/15/16 02:18 Primary care physician: Carlos Marcano MD Attending physician on admission: Carlos Marcano MD Consults: 08/15/16 03:24 Consult to Case Mgmt/Social Srvs [CONS] Routine Reason for Case Mgmt/Social Srvs: Discharge Planning Consult to Physician [CONS] Routine Comment: Syncope Consulting Provider: Cardiology - [facility] When should Consulting Provider be notified: In am Consult to Specialist Group: Cardiology Person Notified: FAM Date Notified: 08/15/16 Time Notified: 07:40 Discharging clinician: Angelo Orellana MD
[2016-08-17 13:03] VITALS: BP 142/94
== END 2016-08-17 14:00 | disposition home or self-care (01) | DRG 310 ==
LOC: N.ED 23:17 → N.EDINP 08-15 02:18 → N.TELES 08-15 02:47
PROVIDERS: ADMIT Family Medicine; ATTEND Family Medicine